=== PATIENT | female | born 1965 | race African-American/Black ===

== ENCOUNTER 2018-02-23 00:58 | Emergency (ER) | payer OTHER ==
[~2018-02-23] VITALS: Ht 170.2 cm; Wt 82.2 kg
[~2018-02-23 00:58] MED LIST: HALDOL; LITHIUM
[2018-02-23] MEDS ORDERED: HALO5 PO (01:07)
[2018-02-23] MEDS ORDERED: BENZ2TAB10 PO (01:07)
[2018-02-23] MEDS ORDERED: BENZTROPINE MESYLATE 1 MG/ML 2 ML VIAL IM ONE (01:45)
[2018-02-23 04:00] VITALS: BP 122/71
== END 2018-02-23 04:30 | disposition home or self-care (01) ==
LOC: EMS 00:59
DX: T43.4X1A Poisoning by butyrophenone and thiothixene neuroleptics, accidental (unintentional), initial encounter (principal); Y92.89 Other specified places as the place of occurrence of the external cause
CPT/HCPCS: 96372; 99283; J0515

== ENCOUNTER 2018-05-03 09:25 | Inpatient (IN) | payer MEDICARE, MEDICAID ==
[~2018-05-03] VITALS: Ht 165.1 cm; Wt 81.5 kg
[~2018-05-03 09:25] MED LIST changes: +BENZ2TAB10 PO; -HALDOL; +HALO5TAB2 PO; -LITHIUM
[2018-05-03] MEDS ORDERED: DIPH25 PO (10:27)
[2018-05-03 10:39] LABS: BASOPHILS % (AUTO) 1.4 % (0.0-2.0); HEMATOCRIT 36.4 % (36-46); HEMOGLOBIN 11.4 g/dL (12.0-16.0); LYMPHOCYTES % (AUTO) 45.7 % (22.0-44.0); MEAN CORPUSCULAR HEMOGLOBIN 21.3 pg (26.0-34.0); MEAN CORPUSCULAR HGB CONC 31.5 G/dL (31.0-37.0); MEAN CORPUSCULAR VOLUME 68 fL (80-100); MONOCYTES # (AUTO) 0.6 K/uL (0.1-1.0); MONOCYTES % (AUTO) 13.7 % (2.0-9.0); NEUTROPHILS # (AUTO) 1.6 K/uL (1.8-7.7); NEUTROPHILS % (AUTO) 38.2 % (40.0-70.0); PLATELET COUNT (AUTO) 244 K/uL (150-450); RED BLOOD CELL COUNT(AUTO) 5.38 MIL/uL (4.00-5.20); RED CELL DISTRIBUTION WIDTH 15.2 % (11.5-14.5)
[2018-05-03] MEDS ORDERED: LORazepam 2 MG TABLET PO ONE (11:00)
[2018-05-03 11:02] LABS: ANION GAP 3 mmol/L (8-16); CALCIUM, TOTAL 8.7 mg/dL (8.8-10.5); CARBON DIOXIDE 31 mmol/L (22-29); CHLORIDE 105 mmol/L (98-107); GLOMERULAR FILTR. RATE CALC > 60 mL/min (>60); GLUCOSE,RANDOM 99 mg/dL (70-110); POTASSIUM 3.2 mmol/L (3.5-5.1); SODIUM SERUM 139 mmol/L (136-145); UREA NITROGEN, BLOOD 3 mg/dL (7-18)
[2018-05-03 11:16] LABS: ALANINE AMINOTRANSFERASE 27 U/L (12-78); ALBUMIN 3.6 g/dL (3.4-5.0); ALKALINE PHOSPHATASE 64 U/L (46-116); ASPARTATE AMINOTRANSFERASE 21 U/L (15-37); BILIRUBIN,TOTAL 0.6 mg/dL (0.1-1.0); TOTAL PROTEIN, SERUM 7.2 g/dL (6.4-8.2)
[2018-05-03 11:18] LABS: AMPHET/METH SCREEN,URINE NEGATIVE (NEGATIVE); BARBITURATE SCREEN, URINE NEGATIVE (NEGATIVE); BENZODIAZEPINES SCREEN,URINE NEGATIVE (NEGATIVE); CANNABINOID SCREEN,URINE NEGATIVE (NEGATIVE); COCAINE SCREEN,URINE NEGATIVE (NEGATIVE); METHADONE SCREEN, URINE NEGATIVE (NEGATIVE); OPIATE SCREEN,URINE NEGATIVE (NEGATIVE)
[2018-05-03 11:21] LABS: PHENCYCLIDINE SCREEN,URINE NEGATIVE (NEGATIVE)
[2018-05-03] MEDS ORDERED: HALOPERIDOL 5 MG TABLET PO PRN (11:30)
[2018-05-03] MEDS ORDERED: POTASSIUM CHLORIDE 20 MEQ ER TABLET PO ONE (11:30)
[2018-05-03] MEDS ORDERED: ZOLPIDEM TARTRATE 10 MG TABLET PO PRN (11:30)
[2018-05-03 12:31] LABS: CHOL/HDL RATIO 2.1 (3.9-5.7); CHOLESTEROL 143 mg/dL (131-200); HDL CHOLESTEROL 67 mg/dL (40-60); LDL CHOL (CALC.) 66 mg/dL (0-130); TRIGLYCERIDES 52 mg/dL (15-150)
[2018-05-03 13:12] VITALS: BP 134/66
[2018-05-03 17:21] VITALS: BP 117/70
[2018-05-03] MEDS: BENZTROPINE MESYLATE 2 MG TABLET PO SCH (21:28)
[2018-05-03] MEDS: HALOPERIDOL 5 MG TABLET PO SCH (21:28)
[2018-05-03] MEDS ORDERED: ACETAMINOPHEN 325 MG TABLET PO PRN (23:45)
[2018-05-04 00:45] VITALS: BP 109/80
[2018-05-04 08:00] VITALS: BP 120/75
[2018-05-04 10:06] VITALS: BP 120/75
[2018-05-04 18:34] VITALS: BP 151/96
[2018-05-04] MEDS ORDERED: ACETAMINOPHEN 325 MG TABLET PO PRN (20:45)
[2018-05-04] MEDS ORDERED: IBUPROFEN 400 MG TABLET PO PRN (20:45)
[2018-05-04] MEDS: BENZTROPINE MESYLATE 2 MG TABLET PO SCH (21:18)
[2018-05-04] MEDS: HALOPERIDOL 5 MG TABLET PO SCH (21:19)
[2018-05-05 00:30] VITALS: BP 133/94
[2018-05-05] MEDS: LORazepam 2 MG TABLET PO PRN ×2 (01:03→20:06)
[2018-05-05 07:58] LABS: HEMOGLOBIN A1C 6.3 % (4.5-6.2)
[2018-05-05 08:05] LABS: THYROID STIMULATING HORMONE 0.76 uIU/mL (0.36-3.74)
[2018-05-05 08:35] VITALS: BP 114/78
[2018-05-05 18:07] VITALS: BP 136/89
[2018-05-05] MEDS: HALOPERIDOL 5 MG TABLET PO SCH (20:05)
[2018-05-05] MEDS: BENZTROPINE MESYLATE 2 MG TABLET PO SCH (20:06)
[2018-05-06 06:52] VITALS: BP 125/64
[2018-05-06 08:45] VITALS: BP 115/52
[2018-05-06 16:43] VITALS: BP 123/76
[2018-05-06] MEDS: HALOPERIDOL 5 MG TABLET PO SCH (20:27)
[2018-05-06] MEDS: BENZTROPINE MESYLATE 2 MG TABLET PO SCH (20:27)
[2018-05-07 00:10] VITALS: BP 147/75
[2018-05-07 09:22] VITALS: BP 110/68
== END 2018-05-07 14:30 | disposition home or self-care (01) | DRG 885 ==
LOC: EMS 09:52 → 3EX 12:40
PROVIDERS: ADMIT Psychiatry & Neurology Child & Adolescent Psychiatry; ATTEND Psychiatry & Neurology Child & Adolescent Psychiatry
DX: F25.0 Schizoaffective disorder, bipolar type (principal); E87.6 Hypokalemia; D64.9 Anemia, unspecified; D72.819 Decreased white blood cell count, unspecified; R73.03 Prediabetes; F41.9 Anxiety disorder, unspecified; F32.9 Major depressive disorder, single episode, unspecified; Z79.899 Other long term (current) drug therapy
CPT/HCPCS: 70450; 83036; 84443; 99285; G0480

== ENCOUNTER 2018-06-26 08:59 | Emergency (ER) | payer OTHER ==
[~2018-06-26] VITALS: Ht 170.2 cm; Wt 80.9 kg
[2018-06-26 09:19] VITALS: BP_DIAS 68
[2018-06-26 09:44] LABS: BASOPHILS % (AUTO) 1.6 % (0.0-2.0); EOSINOPHILS % (AUTO) 0.8 % (1.0-6.0); HEMATOCRIT 34.4 % (36-46); HEMOGLOBIN 11.1 g/dL (12.0-16.0); LYMPHOCYTES # (AUTO) 1.4 K/uL (1.0-4.8); LYMPHOCYTES % (AUTO) 32.7 % (22.0-44.0); MEAN CORPUSCULAR HEMOGLOBIN 21.8 pg (26.0-34.0); MEAN CORPUSCULAR HGB CONC 32.3 G/dL (31.0-37.0); MEAN CORPUSCULAR VOLUME 68 fL (80-100); MONOCYTES # (AUTO) 0.4 K/uL (0.1-1.0); MONOCYTES % (AUTO) 10.6 % (2.0-9.0); NEUTROPHILS # (AUTO) 2.3 K/uL (1.8-7.7); NEUTROPHILS % (AUTO) 54.3 % (40.0-70.0); PLATELET COUNT (AUTO) 242 K/uL (150-450); RED CELL DISTRIBUTION WIDTH 15.6 % (11.5-14.5)
[2018-06-26 09:56] LABS: ANION GAP 9 mmol/L (8-16); CALCIUM, TOTAL 8.7 mg/dL (8.8-10.5); CARBON DIOXIDE 27 mmol/L (22-29); CHLORIDE 104 mmol/L (98-107); CREATININE 0.92 mg/dL (0.60-1.30); GLOMERULAR FILTR. RATE CALC > 60 mL/min (>60); GLUCOSE,RANDOM 116 mg/dL (70-110); POTASSIUM 3.1 mmol/L (3.5-5.1); SODIUM SERUM 140 mmol/L (136-145); UREA NITROGEN, BLOOD 5 mg/dL (7-18)
[2018-06-26 10:01] LABS: ALANINE AMINOTRANSFERASE 21 U/L (12-78); ALBUMIN 3.7 g/dL (3.4-5.0); ALKALINE PHOSPHATASE 63 U/L (46-116); ASPARTATE AMINOTRANSFERASE 17 U/L (15-37); BILIRUBIN,TOTAL 0.4 mg/dL (0.1-1.0); TOTAL PROTEIN, SERUM 7.1 g/dL (6.4-8.2)
[2018-06-26 10:19] LABS: AMPHET/METH SCREEN,URINE NEGATIVE (NEGATIVE); BARBITURATE SCREEN, URINE NEGATIVE (NEGATIVE); BENZODIAZEPINES SCREEN,URINE NEGATIVE (NEGATIVE); CANNABINOID SCREEN,URINE NEGATIVE (NEGATIVE); COCAINE SCREEN,URINE NEGATIVE (NEGATIVE); METHADONE SCREEN, URINE NEGATIVE (NEGATIVE); OPIATE SCREEN,URINE POSITIVE (NEGATIVE)
[2018-06-26 10:22] VITALS: BP_SYST 139
[2018-06-26 10:22] LABS: APPEARANCE,URINE CLOUDY (CLEAR); BILIRUBIN,URINE NEGATIVE (NEGATIVE); GLUCOSE, URINE (UA) NEGATIVE (NEGATIVE); KETONES,URINE NEGATIVE (NEGATIVE); LEUKOCYTE ESTERASE ,URINE NEGATIVE (NEGATIVE); NITRATE,URINE NEGATIVE (NEGATIVE); OCCULT BLOOD,URINE NEGATIVE (NEGATIVE); PH,URINE 6.5 (5.0-8.0); PROTEIN,URINE POS 1+ (NEGATIVE)
[2018-06-26 10:25] LABS: PHENCYCLIDINE SCREEN,URINE NEGATIVE (NEGATIVE)
[2018-06-26 10:48] LABS: BACTERIA,URINE None Seen /HPF (None Seen); RBC,URINE None Seen /HPF (0-2); SQUAMOUS EPITHELIAL CELL,UR Few /LPF (None Seen); WBC,URINE 0-2 /HPF (0-5)
[2018-06-26] MEDS ORDERED: POTASSIUM CHLORIDE 20 MEQ ER TABLET PO ONE (11:15)
== END 2018-06-26 11:49 | disposition home or self-care (01) ==
LOC: EMS 09:03
DX: F20.9 Schizophrenia, unspecified (principal); F31.9 Bipolar disorder, unspecified
CPT/HCPCS: 36415; 80053; 80307; 81001; 85025; 99284; G0480

== ENCOUNTER 2019-02-17 14:36 | Emergency (ER) | payer OTHER ==
[~2019-02-17] VITALS: Ht 170.2 cm; Wt 102.3 kg
[2019-02-17] MEDS ORDERED: HALOPERIDOL LACTATE 5 MG/ML VIAL IM ONE (15:45)
[2019-02-17] MEDS ORDERED: LORazepam 2 MG/ML VIAL IM ONE (15:45)
[2019-02-17 16:20] VITALS: BP 144/84
== END 2019-02-17 16:21 | disposition home or self-care (01) ==
LOC: EMS 14:37
DX: F41.9 Anxiety disorder, unspecified (principal); F43.9 Reaction to severe stress, unspecified; F31.9 Bipolar disorder, unspecified; F20.9 Schizophrenia, unspecified; Z76.0 Encounter for issue of repeat prescription
CPT/HCPCS: 96372; 99284; J1630; J2060

== ENCOUNTER 2019-02-20 09:21 | Emergency (ER) | payer OTHER ==
[~2019-02-20] VITALS: Ht 167.6 cm; Wt 77.3 kg
[2019-02-20] MEDS ORDERED: LORazepam 2 MG TABLET PO ONE (10:15)
[2019-02-20 10:51] LABS: BASOPHILS % (AUTO) 0.6 % (0.0-2.0); EOSINOPHILS % (AUTO) 0 % (1.0-6.0); HEMATOCRIT 36.3 % (36-46); HEMOGLOBIN 11.2 g/dL (12.0-16.0); LYMPHOCYTES # (AUTO) 1.5 K/uL (1.0-4.8); LYMPHOCYTES % (AUTO) 19.4 % (22.0-44.0); MEAN CORPUSCULAR HEMOGLOBIN 20.8 pg (26.0-34.0); MEAN CORPUSCULAR HGB CONC 30.7 G/dL (31.0-37.0); MEAN CORPUSCULAR VOLUME 68 fL (80-100); MONOCYTES # (AUTO) 0.9 K/uL (0.1-1.0); NEUTROPHILS # (AUTO) 5.3 K/uL (1.8-7.7); PLATELET COUNT (AUTO) 317 K/uL (150-450); RED BLOOD CELL COUNT(AUTO) 5.37 MIL/uL (4.00-5.20); RED CELL DISTRIBUTION WIDTH 14.8 % (11.5-14.5)
[2019-02-20 11:06] LABS: ALANINE AMINOTRANSFERASE 19 U/L (12-78); ALBUMIN 3.5 g/dL (3.4-5.0); ALKALINE PHOSPHATASE 74 U/L (46-116); ANION GAP 13 mmol/L (8-16); ASPARTATE AMINOTRANSFERASE 19 U/L (15-37); BILIRUBIN,TOTAL 0.3 mg/dL (0.1-1.0); CALCIUM, TOTAL 9.2 mg/dL (8.8-10.5); CARBON DIOXIDE 26 mmol/L (22-29); CHLORIDE 101 mmol/L (98-107); CREATININE 0.95 mg/dL (0.60-1.30); GLOMERULAR FILTR. RATE CALC > 60 mL/min (>60); GLUCOSE,RANDOM 114 mg/dL (70-110); SODIUM SERUM 140 mmol/L (136-145); TOTAL PROTEIN, SERUM 7.1 g/dL (6.4-8.2); UREA NITROGEN, BLOOD 1 mg/dL (7-18)
[2019-02-20 11:06] LABS: AMPHET/METH SCREEN,URINE NEGATIVE (NEGATIVE); BARBITURATE SCREEN, URINE NEGATIVE (NEGATIVE); BENZODIAZEPINES SCREEN,URINE NEGATIVE (NEGATIVE); CANNABINOID SCREEN,URINE NEGATIVE (NEGATIVE); COCAINE SCREEN,URINE NEGATIVE (NEGATIVE); METHADONE SCREEN, URINE NEGATIVE (NEGATIVE); OPIATE SCREEN,URINE NEGATIVE (NEGATIVE)
[2019-02-20 11:11] LABS: PHENCYCLIDINE SCREEN,URINE NEGATIVE (NEGATIVE)
[2019-02-20 11:13] LABS: POTASSIUM 2.9 mmol/L (3.5-5.1)
[2019-02-20 11:25] LABS: PLATELET MORPHOLOGY COMMENT LARGE PLTS PRESENT
[2019-02-20] MEDS ORDERED: POTASSIUM CHLORIDE 20 MEQ ER TABLET PO ONE (11:45)
[2019-02-20 13:33] VITALS: BP 150/83
== END 2019-02-20 14:18 | disposition home or self-care (01) ==
LOC: EMS 09:23
DX: F41.9 Anxiety disorder, unspecified (principal); E87.6 Hypokalemia; G47.00 Insomnia, unspecified; F31.9 Bipolar disorder, unspecified; F20.9 Schizophrenia, unspecified
CPT/HCPCS: 36415; 80053; 80307; 85025; 99284; G0480

== ENCOUNTER 2019-07-29 09:13 | Emergency (ER) | payer OTHER ==
[~2019-07-29] VITALS: Ht 167.6 cm; Wt 77.3 kg
[2019-07-29 10:59] LABS: APPEARANCE,URINE CLOUDY (CLEAR); BILIRUBIN,URINE NEGATIVE (NEGATIVE); GLUCOSE, URINE (UA) NEGATIVE (NEGATIVE); KETONES,URINE TRACE mg/dL (NEGATIVE); LEUKOCYTE ESTERASE ,URINE TRACE (NEGATIVE); NITRATE,URINE NEGATIVE (NEGATIVE); OCCULT BLOOD,URINE LARGE (NEGATIVE); PROTEIN,URINE POS 1+ (NEGATIVE)
[2019-07-29 11:11] LABS: BACTERIA,URINE None Seen /HPF (None Seen); MUCUS,URINE Many LPF (None Seen); SQUAMOUS EPITHELIAL CELL,UR Few /LPF (None Seen); WBC,URINE 0-2 /HPF (0-5)
[2019-07-29 12:15] VITALS: BP 116/77
== END 2019-07-29 12:18 | disposition home or self-care (01) ==
LOC: EMS 09:19
DX: N93.9 Abnormal uterine and vaginal bleeding, unspecified (principal); F31.9 Bipolar disorder, unspecified; F20.9 Schizophrenia, unspecified; F17.210 Nicotine dependence, cigarettes, uncomplicated; Z79.899 Other long term (current) drug therapy
CPT/HCPCS: 99406

== ENCOUNTER 2020-04-27 20:07 | Emergency (ER) | payer OTHER ==
[~2020-04-27] VITALS: Ht 157.5 cm; Wt 61.4 kg
[2020-04-27 20:20] VITALS: BP 135/59
[2020-04-27] MEDS ORDERED: ZOLP10TA8 PO (20:20)
[2020-04-27] MEDS ORDERED: HALOPERIDOL 5 MG TABLET PO ONE (21:00)
== END 2020-04-27 21:23 | disposition home or self-care (01) ==
LOC: EMS 20:08
DX: F20.9 Schizophrenia, unspecified (principal); F31.9 Bipolar disorder, unspecified

== ENCOUNTER 2021-02-28 09:30 | Emergency (ER) | payer OTHER ==
[~2021-02-28] VITALS: Ht 170.2 cm; Wt 77.3 kg
[~2021-02-28 09:30] MED LIST changes: +ZOLP10TA8 PO
[2021-02-28] MEDS ORDERED: LORazepam 1 MG TABLET PO ONE (09:45)
[2021-02-28 10:04] LABS: AMPHET/METH SCREEN,URINE NEGATIVE (NEGATIVE); BARBITURATE SCREEN, URINE NEGATIVE (NEGATIVE); BENZODIAZEPINES SCREEN,URINE NEGATIVE (NEGATIVE); CANNABINOID SCREEN,URINE NEGATIVE (NEGATIVE); COCAINE SCREEN,URINE NEGATIVE (NEGATIVE); METHADONE SCREEN, URINE NEGATIVE (NEGATIVE); OPIATE SCREEN,URINE NEGATIVE (NEGATIVE); PHENCYCLIDINE SCREEN,URINE NEGATIVE (NEGATIVE)
[2021-02-28 10:13] LABS: POTASSIUM 3.8 mmol/L (3.5-5.1); SODIUM SERUM 140 mmol/L (136-145)
[2021-02-28 10:14] LABS: ANION GAP 10 mmol/L (8-16); CALCIUM, TOTAL 9.2 mg/dL (8.8-10.5); CARBON DIOXIDE 25 mmol/L (22-29); CHLORIDE 105 mmol/L (98-107); CREATININE 1.09 mg/dL (0.60-1.30); GLOMERULAR FILTR. RATE CALC > 60 mL/min (>60); GLUCOSE,RANDOM 124 mg/dL (70-110); UREA NITROGEN, BLOOD 3 mg/dL (7-18)
[2021-02-28 10:19] LABS: ALANINE AMINOTRANSFERASE 21 U/L (12-78); ALBUMIN 3.8 g/dL (3.4-5.0); ALKALINE PHOSPHATASE 77 U/L (46-116); ASPARTATE AMINOTRANSFERASE 15 U/L (15-37); BILIRUBIN,TOTAL 0.4 mg/dL (0.1-1.0); TOTAL PROTEIN, SERUM 7.6 g/dL (6.4-8.2)
[2021-02-28 10:20] LABS: BASOPHILS % (AUTO) 0.6 % (0.0-2.0); EOSINOPHILS % (AUTO) 0.4 % (1.0-6.0); HEMATOCRIT 39.6 % (36-46); HEMOGLOBIN 12.4 g/dL (12.0-16.0); LYMPHOCYTES # (AUTO) 2.5 K/uL (1.0-4.8); LYMPHOCYTES % (AUTO) 42.9 % (22.0-44.0); MEAN CORPUSCULAR HEMOGLOBIN 21.3 pg (26.0-34.0); MEAN CORPUSCULAR HGB CONC 31.3 G/dL (31.0-37.0); MEAN CORPUSCULAR VOLUME 68 fL (80-100); MONOCYTES # (AUTO) 0.6 K/uL (0.1-1.0); MONOCYTES % (AUTO) 10.2 % (2.0-9.0); NEUTROPHILS # (AUTO) 2.7 K/uL (1.8-7.7); NEUTROPHILS % (AUTO) 45.9 % (40.0-70.0); PLATELET COUNT (AUTO) 256 K/uL (150-450); RED BLOOD CELL COUNT(AUTO) 5.81 MIL/uL (4.00-5.20); RED CELL DISTRIBUTION WIDTH 15.3 % (11.5-14.5)
[2021-02-28 11:33] VITALS: BP 111/60
== END 2021-02-28 11:39 | disposition home or self-care (01) ==
LOC: EMS 09:37
DX: F20.9 Schizophrenia, unspecified (principal)
CPT/HCPCS: 36415; 80053; 80307; 85025; 99284; G0480

== ENCOUNTER 2021-03-17 11:08 | Inpatient (IN) | payer MEDICARE, MEDICAID ==
[~2021-03-17] VITALS: Ht 165.1 cm; Wt 87.0 kg
[2021-03-17] MEDS ORDERED: LORazepam 2 MG/ML VIAL ONE (12:22)
[2021-03-17] MEDS ORDERED: LORazepam 2 MG/ML VIAL IM ONE (12:30)
[2021-03-17 12:56] LABS: BASOPHILS % (AUTO) 1.2 % (0.0-2.0); EOSINOPHILS % (AUTO) 0.2 % (1.0-6.0); HEMATOCRIT 39.8 % (36-46); HEMOGLOBIN 12.4 g/dL (12.0-16.0); LYMPHOCYTES # (AUTO) 1.9 K/uL (1.0-4.8); LYMPHOCYTES % (AUTO) 32.1 % (22.0-44.0); MEAN CORPUSCULAR HEMOGLOBIN 21.5 pg (26.0-34.0); MEAN CORPUSCULAR HGB CONC 31.2 G/dL (31.0-37.0); MEAN CORPUSCULAR VOLUME 69 fL (80-100); MONOCYTES # (AUTO) 0.7 K/uL (0.1-1.0); MONOCYTES % (AUTO) 11.6 % (2.0-9.0); NEUTROPHILS # (AUTO) 3.3 K/uL (1.8-7.7); NEUTROPHILS % (AUTO) 54.9 % (40.0-70.0); PLATELET COUNT (AUTO) 277 K/uL (150-450); RED BLOOD CELL COUNT(AUTO) 5.78 MIL/uL (4.00-5.20); RED CELL DISTRIBUTION WIDTH 15.5 % (11.5-14.5)
[2021-03-17 13:05] LABS: ANION GAP 10 mmol/L (8-16); CARBON DIOXIDE 25 mmol/L (22-29); CHLORIDE 101 mmol/L (98-107); CREATININE 1.11 mg/dL (0.60-1.30); GLOMERULAR FILTR. RATE CALC > 60 mL/min (>60); GLUCOSE,RANDOM 145 mg/dL (70-110); POTASSIUM 3.4 mmol/L (3.5-5.1); SODIUM SERUM 136 mmol/L (136-145); UREA NITROGEN, BLOOD 8 mg/dL (7-18)
[2021-03-17 13:09] LABS: ALANINE AMINOTRANSFERASE 20 U/L (12-78); ALKALINE PHOSPHATASE 70 U/L (46-116); ASPARTATE AMINOTRANSFERASE 15 U/L (15-37); BILIRUBIN,TOTAL 0.2 mg/dL (0.1-1.0); TOTAL PROTEIN, SERUM 7.5 g/dL (6.4-8.2)
[2021-03-17] MEDS ORDERED: BENZTROPINE MESYLATE 2 MG TABLET PO ONE (13:30)
[2021-03-17] MEDS ORDERED: HALOPERIDOL 5 MG TABLET PO ONE (13:30)
[2021-03-17 13:52] LABS: COVID AG,FIA SOURCE NASOPHARYNGEAL
[2021-03-17] MEDS ORDERED: LORazepam 2 MG TABLET PO PRN (14:30)
[2021-03-17] MEDS ORDERED: ZOLPIDEM TARTRATE 10 MG TABLET PO PRN (14:30)
[2021-03-17] MEDS ORDERED: HALOPERIDOL 5 MG TABLET PO PRN (14:30)
[2021-03-17 18:10] LABS: AMPHET/METH SCREEN,URINE NEGATIVE (NEGATIVE); BARBITURATE SCREEN, URINE NEGATIVE (NEGATIVE); BENZODIAZEPINES SCREEN,URINE NEGATIVE (NEGATIVE); CANNABINOID SCREEN,URINE NEGATIVE (NEGATIVE); COCAINE SCREEN,URINE NEGATIVE (NEGATIVE); METHADONE SCREEN, URINE NEGATIVE (NEGATIVE); OPIATE SCREEN,URINE NEGATIVE (NEGATIVE)
[2021-03-17 18:17] LABS: PHENCYCLIDINE SCREEN,URINE NEGATIVE (NEGATIVE)
[2021-03-17 19:51] VITALS: BP 122/78
[2021-03-17] MEDS: BENZTROPINE MESYLATE 2 MG TABLET PO SCH (21:39)
[2021-03-17] MEDS: HALOPERIDOL 5 MG TABLET PO SCH (21:40)
[2021-03-18 00:44] VITALS: BP 130/72
[2021-03-18] MEDS ORDERED: MAG HYDROX/AL HYDROX/SIMETH ES 30 ML SUSPENSION UDCUP PO PRN (06:30)
[2021-03-18] MEDS ORDERED: OMEPRAZOLE 20 MG CAPSULE PO PRN (06:30)
[2021-03-18] MEDS ORDERED: LOPERAMIDE HCL 2 MG CAPSULE PO PRN (06:30)
[2021-03-18] MEDS ORDERED: BENZOCAINE/MENTHOL LOZENGE PO PRN (06:30)
[2021-03-18] MEDS ORDERED: CloNIDine HCL 0.1 MG TABLET PO PRN (06:30)
[2021-03-18] MEDS ORDERED: ALBUTEROL SULFATE HFA 90 MCG/PUFF 8 GM INHALER IH PRN (06:30)
[2021-03-18] MEDS ORDERED: BACITRACIN 28 GM OINTMENT TP PRN (06:30)
[2021-03-18] MEDS ORDERED: DOCUSATE SODIUM 100 MG CAPSULE PO PRN (06:30)
[2021-03-18] MEDS ORDERED: ACETAMINOPHEN 325 MG TABLET PO PRN (06:30)
[2021-03-18] MEDS ORDERED: ONDANSETRON HCL 4 MG TABLET PO PRN (06:30)
[2021-03-18] MEDS ORDERED: IBUPROFEN 600 MG TABLET PO PRN (06:30)
[2021-03-18] MEDS ORDERED: PETROLATUM,WHITE 28 GM JELLY TP PRN (06:30)
[2021-03-18] MEDS ORDERED: POTASSIUM CHLORIDE 20 MEQ ER TABLET PO ONE (06:30)
[2021-03-18] MEDS ORDERED: MAGNESIUM HYDROXIDE SUSPENSION 30 ML UDCUP PO PRN (06:30)
[2021-03-18 08:36] VITALS: BP 106/70
[2021-03-18] MEDS: FERROUS SULFATE 325 MG EC TABLET PO SCH (08:41)
[2021-03-18 16:05] VITALS: BP 105/67
[2021-03-18] MEDS: HALOPERIDOL 5 MG TABLET PO SCH (20:16)
[2021-03-18] MEDS: BENZTROPINE MESYLATE 2 MG TABLET PO SCH (20:16)
[2021-03-19 00:38] VITALS: BP 113/64
[2021-03-19 08:17] VITALS: BP 116/73
[2021-03-19] MEDS: FERROUS SULFATE 325 MG EC TABLET PO SCH (08:21)
[2021-03-19 16:07] VITALS: BP 106/70
[2021-03-19] MEDS: HALOPERIDOL 5 MG TABLET PO SCH (20:28)
[2021-03-19] MEDS: BENZTROPINE MESYLATE 2 MG TABLET PO SCH (20:28)
[2021-03-20 05:37] VITALS: BP 135/70
[2021-03-20] MEDS: FERROUS SULFATE 325 MG EC TABLET PO SCH (08:27)
[2021-03-20 08:54] VITALS: BP 123/81
[2021-03-20 16:32] VITALS: BP 142/68
[2021-03-20] MEDS: HALOPERIDOL 5 MG TABLET PO SCH (20:04)
[2021-03-20] MEDS: BENZTROPINE MESYLATE 2 MG TABLET PO SCH (20:04)
[2021-03-21 05:47] VITALS: BP 116/63
[2021-03-21] MEDS: FERROUS SULFATE 325 MG EC TABLET PO SCH (08:38)
[2021-03-21 08:42] VITALS: BP 129/68
[2021-03-21 16:10] VITALS: BP 113/61
[2021-03-21] MEDS: HALOPERIDOL 5 MG TABLET PO SCH (20:07)
[2021-03-21] MEDS: BENZTROPINE MESYLATE 2 MG TABLET PO SCH (20:07)
[2021-03-22 00:12] VITALS: BP 104/81
[2021-03-22 07:20] LABS: COVID AG,FIA SOURCE NASOPHARYNGEAL
[2021-03-22] MEDS: FERROUS SULFATE 325 MG EC TABLET PO SCH (08:27)
[2021-03-22 08:52] VITALS: BP 119/64
[2021-03-22 16:09] VITALS: BP 104/68
[2021-03-22] MEDS: BENZTROPINE MESYLATE 2 MG TABLET PO SCH (21:45)
[2021-03-22] MEDS: HALOPERIDOL 5 MG TABLET PO SCH (21:45)
[2021-03-23 00:12] VITALS: BP 121/73
[2021-03-23 07:34] LABS: BASOPHILS % (AUTO) 0.4 % (0.0-2.0); EOSINOPHILS % (AUTO) 0.9 % (1.0-6.0); HEMATOCRIT 35.1 % (36-46); HEMOGLOBIN 10.8 g/dL (12.0-16.0); LYMPHOCYTES # (AUTO) 2.4 K/uL (1.0-4.8); LYMPHOCYTES % (AUTO) 42.7 % (22.0-44.0); MEAN CORPUSCULAR HGB CONC 30.8 G/dL (31.0-37.0); MEAN CORPUSCULAR VOLUME 68 fL (80-100); MONOCYTES # (AUTO) 0.7 K/uL (0.1-1.0); MONOCYTES % (AUTO) 11.8 % (2.0-9.0); NEUTROPHILS # (AUTO) 2.5 K/uL (1.8-7.7); NEUTROPHILS % (AUTO) 44.2 % (40.0-70.0); PLATELET COUNT (AUTO) 209 K/uL (150-450); RED BLOOD CELL COUNT(AUTO) 5.15 MIL/uL (4.00-5.20); RED CELL DISTRIBUTION WIDTH 15.7 % (11.5-14.5)
[2021-03-23 08:04] LABS: HEMOGLOBIN A1C 5.8 % (3.8-5.6)
[2021-03-23] MEDS: FERROUS SULFATE 325 MG EC TABLET PO SCH (08:05)
[2021-03-23 08:09] VITALS: BP 119/65
[2021-03-23 08:14] LABS: % IRON SATURATION 14.4 % (22-44); IRON, SERUM 34 mcg/dL (50-175); TOTAL IRON BINDING CAPACITY 236 mcg/dL (250-450)
[2021-03-23 08:16] LABS: ALANINE AMINOTRANSFERASE 19 U/L (12-78); ALKALINE PHOSPHATASE 55 U/L (46-116); ANION GAP 7 mmol/L (8-16); ASPARTATE AMINOTRANSFERASE 11 U/L (15-37); BILIRUBIN,TOTAL 0.1 mg/dL (0.1-1.0); CALCIUM, TOTAL 8.6 mg/dL (8.8-10.5); CARBON DIOXIDE 26 mmol/L (22-29); CHLORIDE 104 mmol/L (98-107); CHOL/HDL RATIO 3.2 (3.9-5.7); CHOLESTEROL 158 mg/dL (131-200); CREATININE 0.85 mg/dL (0.60-1.30); GLOMERULAR FILTR. RATE CALC > 60 mL/min (>60); GLUCOSE,RANDOM 94 mg/dL (70-110); HDL CHOLESTEROL 50 mg/dL (40-60); LDL CHOL (CALC.) 94 mg/dL (0-130); PHOSPHORUS 3.9 mg/dL (2.5-4.9); POTASSIUM 4.3 mmol/L (3.5-5.1); SODIUM SERUM 137 mmol/L (136-145); THYROID STIMULATING HORMONE 0.65 uIU/mL (0.36-3.74); TOTAL PROTEIN, SERUM 5.9 g/dL (6.4-8.2); TRIGLYCERIDES 72 mg/dL (15-150); UREA NITROGEN, BLOOD 10 mg/dL (7-18)
[2021-03-23 16:02] VITALS: BP 114/76
[2021-03-23] MEDS: HALOPERIDOL 5 MG TABLET PO SCH (20:08)
[2021-03-23] MEDS: BENZTROPINE MESYLATE 2 MG TABLET PO SCH (20:08)
[2021-03-24 06:31] VITALS: BP_SYST 119; BP_SYST 139; BP_DIAS 102; BP_DIAS 76
[2021-03-24 08:06] VITALS: BP 112/67
[2021-03-24] MEDS: FERROUS SULFATE 325 MG EC TABLET PO SCH (08:08)
[2021-03-24] MEDS ORDERED: HALO5TAB23 PO (08:46)
[2021-03-24] MEDS ORDERED: BENZ2TAB10 PO (08:46)
[2021-03-24] MEDS ORDERED: FERR-89 PO (09:41)
[2021-03-24 16:12] VITALS: BP 114/62
[2021-03-24] MEDS: BENZTROPINE MESYLATE 2 MG TABLET PO SCH (19:57)
[2021-03-24] MEDS: HALOPERIDOL 5 MG TABLET PO SCH (19:59)
[2021-03-25 00:14] VITALS: BP 116/71
[2021-03-25] MEDS: FERROUS SULFATE 325 MG EC TABLET PO SCH (08:00)
[2021-03-25 08:01] VITALS: BP 136/66
[2021-03-25 16:08] VITALS: BP 114/83
[2021-03-25] MEDS: BENZTROPINE MESYLATE 2 MG TABLET PO SCH (20:09)
[2021-03-25] MEDS: HALOPERIDOL 5 MG TABLET PO SCH (20:09)
[2021-03-26 00:36] VITALS: BP 123/62
[2021-03-26 08:02] VITALS: BP 122/91
[2021-03-26] MEDS: FERROUS SULFATE 325 MG EC TABLET PO SCH (09:03)
[2021-03-26 16:20] VITALS: BP 109/74
[2021-03-26] MEDS: HALOPERIDOL 5 MG TABLET PO SCH (20:13)
[2021-03-26] MEDS: BENZTROPINE MESYLATE 2 MG TABLET PO SCH (20:13)
[2021-03-27 01:05] VITALS: BP 118/72
[2021-03-27] MEDS: FERROUS SULFATE 325 MG EC TABLET PO SCH (08:14)
[2021-03-27 08:19] VITALS: BP 111/78
[2021-03-27 16:02] VITALS: BP 123/72
[2021-03-27] MEDS: BENZTROPINE MESYLATE 2 MG TABLET PO SCH (20:12)
[2021-03-27] MEDS: HALOPERIDOL 5 MG TABLET PO SCH (20:12)
[2021-03-28 00:44] VITALS: BP 145/80
[2021-03-28 07:56] LABS: COVID AG,FIA SOURCE NASOPHARYNGEAL
[2021-03-28] MEDS: FERROUS SULFATE 325 MG EC TABLET PO SCH (08:02)
[2021-03-28 08:11] VITALS: BP 125/69
== END 2021-03-28 14:08 | disposition home or self-care (01) | DRG 885 ==
LOC: EMS 11:13 → B2S 16:45
PROVIDERS: ADMIT Psychiatry & Neurology Psychiatry; ATTEND Psychiatry & Neurology Psychiatry
DX: F25.9 Schizoaffective disorder, unspecified (principal); I10 Essential (primary) hypertension; K21.9 Gastro-esophageal reflux disease without esophagitis; K59.00 Constipation, unspecified; D64.9 Anemia, unspecified; F41.9 Anxiety disorder, unspecified; G47.00 Insomnia, unspecified; F31.9 Bipolar disorder, unspecified; Z20.822 Contact with and (suspected) exposure to COVID-19
CPT/HCPCS: 80053; 80061; 83036; 83540; 83550; 83735; 84100; 84132; 84443; 85025; 87426; 99285; G0480; J2060

== ENCOUNTER 2022-01-01 08:12 | Inpatient (IN) | payer MEDICARE, MEDICAID ==
[~2022-01-01] VITALS: Ht 170.2 cm; Wt 87.3 kg
[~2022-01-01 08:12] MED LIST changes: +FERR-89 PO; -HALO5TAB2 PO; +HALO5TAB23 PO; -ZOLP10TA8 PO
[2022-01-01] MEDS ORDERED: DiphenhydrAMINE HCL 50 MG/ML VIAL IM ONE (09:30)
[2022-01-01] MEDS ORDERED: HALOPERIDOL LACTATE 5 MG/ML VIAL IM ONE (09:30)
[2022-01-01 09:33] LABS: EOSINOPHILS % (AUTO) 0.7 % (1.0-6.0); HEMOGLOBIN 12.7 g/dL (12.0-16.0); LYMPHOCYTES # (AUTO) 2.1 K/uL (1.0-4.8); LYMPHOCYTES % (AUTO) 43.1 % (22.0-44.0); MEAN CORPUSCULAR HEMOGLOBIN 21.5 pg (26.0-34.0); MEAN CORPUSCULAR HGB CONC 31.8 G/dL (31.0-37.0); MEAN CORPUSCULAR VOLUME 68 fL (80-100); MONOCYTES # (AUTO) 0.5 K/uL (0.1-1.0); MONOCYTES % (AUTO) 10.3 % (2.0-9.0); NEUTROPHILS # (AUTO) 2.2 K/uL (1.8-7.7); NEUTROPHILS % (AUTO) 44.9 % (40.0-70.0); PLATELET COUNT (AUTO) 265 K/uL (150-450); RED BLOOD CELL COUNT(AUTO) 5.91 MIL/uL (4.00-5.20); RED CELL DISTRIBUTION WIDTH 15.5 % (11.5-14.5)
[2022-01-01 09:43] LABS: ANION GAP 11 mmol/L (8-16); CALCIUM, TOTAL 8.9 mg/dL (8.8-10.5); CARBON DIOXIDE 28 mmol/L (22-29); CHLORIDE 103 mmol/L (98-107); CREATININE 0.92 mg/dL (0.60-1.30); GLOMERULAR FILTR. RATE CALC > 60 mL/min (>60); GLUCOSE,RANDOM 109 mg/dL (70-110); POTASSIUM 3.6 mmol/L (3.5-5.1); SODIUM SERUM 142 mmol/L (136-145); UREA NITROGEN, BLOOD 6 mg/dL (7-18)
[2022-01-01 09:49] LABS: ALANINE AMINOTRANSFERASE 18 U/L (12-78); ALBUMIN 3.7 g/dL (3.4-5.0); ALKALINE PHOSPHATASE 76 U/L (46-116); ASPARTATE AMINOTRANSFERASE 14 U/L (15-37); BILIRUBIN,TOTAL 0.2 mg/dL (0.1-1.0); TOTAL PROTEIN, SERUM 7.4 g/dL (6.4-8.2)
[2022-01-01] MEDS ORDERED: ACETAMINOPHEN 325 MG TABLET PO ONE (12:15)
[2022-01-01 12:46] LABS: COVID AG,FIA SOURCE NASAL SWAB
[2022-01-01 13:54] LABS: AMPHET/METH SCREEN,URINE NEGATIVE (NEGATIVE); BARBITURATE SCREEN, URINE NEGATIVE (NEGATIVE); BENZODIAZEPINES SCREEN,URINE NEGATIVE (NEGATIVE); CANNABINOID SCREEN,URINE NEGATIVE (NEGATIVE); COCAINE SCREEN,URINE NEGATIVE (NEGATIVE); METHADONE SCREEN, URINE NEGATIVE (NEGATIVE); OPIATE SCREEN,URINE NEGATIVE (NEGATIVE)
[2022-01-01 13:55] LABS: PHENCYCLIDINE SCREEN,URINE NEGATIVE (NEGATIVE)
[2022-01-01] MEDS ORDERED: INFLUENZA VIRUS VACCINE QVS 2021-22 (6MO+)/PF 60 MCG/0.5 ML SYRINGE IM. ONE (16:45)
[2022-01-01] MEDS ORDERED: HALOPERIDOL 5 MG TABLET PO PRN (17:45)
[2022-01-01] MEDS ORDERED: ZOLPIDEM TARTRATE 10 MG TABLET PO PRN (17:45)
[2022-01-01] MEDS: LORazepam 2 MG TABLET PO PRN (17:50)
[2022-01-02 09:28] VITALS: BP 131/66
[2022-01-02 16:22] VITALS: BP 124/66
[2022-01-02] MEDS: LORazepam 2 MG TABLET PO PRN (18:50)
[2022-01-03 07:05] VITALS: BP 122/69
[2022-01-03 08:07] VITALS: BP 118/79
[2022-01-03] MEDS ORDERED: PETROLATUM,WHITE 28 GM JELLY TP PRN (13:45)
[2022-01-03] MEDS ORDERED: CloNIDine HCL 0.1 MG TABLET PO PRN (13:45)
[2022-01-03] MEDS ORDERED: LOPERAMIDE HCL 2 MG CAPSULE PO PRN (13:45)
[2022-01-03] MEDS ORDERED: IBUPROFEN 600 MG TABLET PO PRN (13:45)
[2022-01-03] MEDS ORDERED: DOCUSATE SODIUM 100 MG CAPSULE PO PRN (13:45)
[2022-01-03] MEDS ORDERED: ALBUTEROL SULFATE HFA 90 MCG/PUFF 8 GM INHALER IH PRN (13:45)
[2022-01-03] MEDS ORDERED: ACETAMINOPHEN 325 MG TABLET PO PRN (13:45)
[2022-01-03] MEDS ORDERED: ONDANSETRON HCL 4 MG TABLET PO PRN (13:45)
[2022-01-03] MEDS ORDERED: OMEPRAZOLE 20 MG CAPSULE PO PRN (13:45)
[2022-01-03] MEDS ORDERED: BENZOCAINE/MENTHOL LOZENGE PO PRN (13:45)
[2022-01-03] MEDS ORDERED: BACITRACIN 28 GM OINTMENT TP PRN (13:45)
[2022-01-03] MEDS ORDERED: MAG HYDROX/AL HYDROX/SIMETH ES 30 ML SUSPENSION UDCUP PO PRN (13:45)
[2022-01-03] MEDS ORDERED: MAGNESIUM HYDROXIDE SUSPENSION 30 ML UDCUP PO PRN (13:45)
[2022-01-03 16:20] VITALS: BP 115/75
[2022-01-03] MEDS: BENZTROPINE MESYLATE 1 MG TABLET PO SCH (20:47)
[2022-01-03] MEDS: HALOPERIDOL 5 MG TABLET PO SCH (20:47)
[2022-01-04 04:00] VITALS: BP 115/75
[2022-01-04] MEDS: FERROUS SULFATE 325 MG EC TABLET PO SCH (06:30)
[2022-01-04 08:08] VITALS: BP 118/79
[2022-01-04 16:40] VITALS: BP 110/69
[2022-01-04] MEDS: BENZTROPINE MESYLATE 1 MG TABLET PO SCH (20:20)
[2022-01-04] MEDS: HALOPERIDOL 5 MG TABLET PO SCH (20:20)
[2022-01-05] MEDS: FERROUS SULFATE 325 MG EC TABLET PO SCH (06:06)
[2022-01-05 06:12] VITALS: BP 120/72
[2022-01-05 07:07] VITALS: BP 104/82
[2022-01-05 08:29] VITALS: BP 135/77
[2022-01-05] MEDS ORDERED: BENZ1TAB10 PO (10:04)
[2022-01-05] MEDS ORDERED: HALO5TAB2 PO (10:04)
== END 2022-01-05 12:28 | disposition home or self-care (01) | DRG 885 ==
LOC: EMS 08:12 → B3A 15:19
PROVIDERS: ADMIT Psychiatry & Neurology Psychiatry; ATTEND Psychiatry & Neurology Psychiatry
DX: F25.9 Schizoaffective disorder, unspecified (principal); R45.851 Suicidal ideations; D50.9 Iron deficiency anemia, unspecified; I10 Essential (primary) hypertension; K59.00 Constipation, unspecified; F41.9 Anxiety disorder, unspecified; G47.00 Insomnia, unspecified; K21.9 Gastro-esophageal reflux disease without esophagitis; Z20.822 Contact with and (suspected) exposure to COVID-19
CPT/HCPCS: 80053; 85025; 90686; 99285; G0480; J1200; J1630

== ENCOUNTER 2022-01-15 09:24 | Emergency (ER) | payer OTHER ==
[~2022-01-15] VITALS: Ht 170.2 cm; Wt 86.4 kg
[~2022-01-15 09:24] MED LIST changes: +BENZ1TAB10 PO; -BENZ2TAB10 PO; +HALO5TAB2 PO; -HALO5TAB23 PO
[2022-01-15] MEDS ORDERED: LORazepam 1 MG TABLET PO ONE (10:30)
[2022-01-15 11:48] VITALS: BP 127/81
== END 2022-01-15 12:06 | disposition home or self-care (01) ==
LOC: EMS 09:27
DX: F41.9 Anxiety disorder, unspecified (principal); F31.9 Bipolar disorder, unspecified; F20.9 Schizophrenia, unspecified; Z76.0 Encounter for issue of repeat prescription
CPT/HCPCS: 99283

== ENCOUNTER 2022-05-19 20:24 | Emergency (ER) | payer OTHER ==
[~2022-05-19] VITALS: Ht 170.2 cm; Wt 86.4 kg
[~2022-05-19 20:24] MED LIST changes: -BENZ1TAB10 PO; +BENZ1TAB96 PO; -FERR-89 PO; +FERR325T27 PO
[2022-05-19] MEDS ORDERED: LORazepam 1 MG TABLET PO ONE (22:45)
[2022-05-19 23:23] LABS: BASOPHILS % (AUTO) 1.1 % (0.0-2.0); EOSINOPHILS % (AUTO) 0.5 % (1.0-6.0); HEMOGLOBIN 12.6 g/dL (12.0-16.0); LYMPHOCYTES # (AUTO) 2.4 K/uL (1.0-4.8); LYMPHOCYTES % (AUTO) 39.5 % (22.0-44.0); MEAN CORPUSCULAR HEMOGLOBIN 21.2 pg (26.0-34.0); MEAN CORPUSCULAR HGB CONC 31.4 G/dL (31.0-37.0); MEAN CORPUSCULAR VOLUME 68 fL (80-100); MONOCYTES # (AUTO) 0.5 K/uL (0.1-1.0); MONOCYTES % (AUTO) 8.8 % (2.0-9.0); NEUTROPHILS # (AUTO) 3.1 K/uL (1.8-7.7); NEUTROPHILS % (AUTO) 50.1 % (40.0-70.0); PLATELET COUNT (AUTO) 243 K/uL (150-450); RED BLOOD CELL COUNT(AUTO) 5.93 MIL/uL (4.00-5.20); RED CELL DISTRIBUTION WIDTH 14.9 % (11.5-14.5)
[2022-05-19 23:34] LABS: ANION GAP 11 mmol/L (8-16); CALCIUM, TOTAL 9.5 mg/dL (8.8-10.5); CARBON DIOXIDE 24 mmol/L (22-29); CHLORIDE 101 mmol/L (98-107); CREATININE 0.97 mg/dL (0.60-1.30); GLUCOSE,RANDOM 101 mg/dL (70-110); POTASSIUM 3.3 mmol/L (3.5-5.1); SODIUM SERUM 136 mmol/L (136-145); UREA NITROGEN, BLOOD 6 mg/dL (7-18)
[2022-05-19 23:35] LABS: GLOMERULAR FILTR. RATE CALC > 60 mL/min (>60)
[2022-05-19 23:40] LABS: ALANINE AMINOTRANSFERASE 21 U/L (12-78); ALBUMIN 4.2 g/dL (3.4-5.0); ALKALINE PHOSPHATASE 72 U/L (46-116); ASPARTATE AMINOTRANSFERASE 21 U/L (15-37); BILIRUBIN,TOTAL 0.7 mg/dL (0.1-1.0); TOTAL PROTEIN, SERUM 8.1 g/dL (6.4-8.2)
[2022-05-20 02:00] VITALS: BP 135/92
== END 2022-05-20 03:00 | disposition home or self-care (01) ==
LOC: EMS 20:26
DX: F41.9 Anxiety disorder, unspecified (principal); F20.9 Schizophrenia, unspecified; F31.9 Bipolar disorder, unspecified
CPT/HCPCS: 36415; 80053; 85025; 99283; G0480

== ENCOUNTER 2022-07-01 14:15 | Inpatient (IN) | payer MEDICARE, MEDICAID ==
[~2022-07-01] VITALS: Ht 170.2 cm; Wt 83.1 kg
[~2022-07-01 14:15] MED LIST changes: +ACET-2247 PO; +AUD NEB; -BENZ1TAB96 PO; +BENZ2TAB76 PO; -FERR325T27 PO; +HEPA500018 SQ; +PANT-31 PO
[2022-07-01] MEDS ORDERED: ZOLPIDEM TARTRATE 10 MG TABLET PO PRN (15:30)
[2022-07-01 16:01] VITALS: BP 145/97
[2022-07-01] MEDS: LORazepam 2 MG TABLET PO PRN (16:13)
[2022-07-01] MEDS: HALOPERIDOL 5 MG TABLET PO PRN ×2 (16:13→21:17)
[2022-07-02] MEDS ORDERED: MAGNESIUM HYDROXIDE SUSPENSION 30 ML UDCUP PO PRN (06:30)
[2022-07-02] MEDS ORDERED: OMEPRAZOLE 20 MG CAPSULE PO PRN (06:30)
[2022-07-02] MEDS ORDERED: LOPERAMIDE HCL 2 MG CAPSULE PO PRN (06:30)
[2022-07-02] MEDS ORDERED: ONDANSETRON HCL 4 MG TABLET PO PRN (06:30)
[2022-07-02] MEDS ORDERED: ACETAMINOPHEN 325 MG TABLET PO PRN (06:30)
[2022-07-02] MEDS ORDERED: IBUPROFEN 600 MG TABLET PO PRN (06:30)
[2022-07-02] MEDS ORDERED: PETROLATUM,WHITE 28 GM JELLY TP PRN (06:30)
[2022-07-02] MEDS ORDERED: BACITRACIN 28 GM OINTMENT TP PRN (06:30)
[2022-07-02] MEDS ORDERED: BENZOCAINE/MENTHOL LOZENGE PO PRN (06:30)
[2022-07-02] MEDS ORDERED: MAG HYDROX/AL HYDROX/SIMETH ES 30 ML SUSPENSION UDCUP PO PRN (06:30)
[2022-07-02] MEDS ORDERED: CloNIDine HCL 0.1 MG TABLET PO PRN (06:30)
[2022-07-02] MEDS ORDERED: DOCUSATE SODIUM 100 MG CAPSULE PO PRN (06:30)
[2022-07-02] MEDS ORDERED: ALBUTEROL SULFATE HFA 90 MCG/PUFF 8 GM INHALER IH PRN (06:30)
[2022-07-02 07:45] LABS: CHOL/HDL RATIO 3.7 (3.9-5.7); THYROID STIMULATING HORMONE 0.43 uIU/mL (0.36-3.74)
[2022-07-02 08:00] VITALS: BP 107/55
[2022-07-02 16:07] VITALS: BP 115/60
[2022-07-02] MEDS: LORazepam 2 MG TABLET PO PRN (16:11)
[2022-07-02] MEDS: HALOPERIDOL 5 MG TABLET PO PRN (16:12)
[2022-07-02] MEDS: BENZTROPINE MESYLATE 1 MG TABLET PO SCH (20:40)
[2022-07-02] MEDS: HALOPERIDOL 5 MG TABLET PO SCH (20:40)
[2022-07-03 09:07] VITALS: BP 110/63
[2022-07-03 16:12] VITALS: BP 109/71
[2022-07-03] MEDS: HALOPERIDOL 5 MG TABLET PO SCH (20:08)
[2022-07-03] MEDS: BENZTROPINE MESYLATE 1 MG TABLET PO SCH (20:08)
[2022-07-04 08:00] VITALS: BP 126/85
[2022-07-04 16:20] VITALS: BP 132/75
[2022-07-04] MEDS: HALOPERIDOL 5 MG TABLET PO SCH (20:08)
[2022-07-04] MEDS: BENZTROPINE MESYLATE 1 MG TABLET PO SCH (20:08)
[2022-07-05 07:02] LABS: COVID AG,FIA SOURCE NASAL SWAB
[2022-07-05 08:55] VITALS: BP 140/79
[2022-07-05] MEDS ORDERED: HALO5TAB23 PO (12:42)
== END 2022-07-05 15:35 | disposition home or self-care (01) | DRG 885 ==
LOC: 3EI 14:15
PROVIDERS: ADMIT Psychiatry & Neurology Psychiatry; ATTEND Psychiatry & Neurology Psychiatry
DX: F20.9 Schizophrenia, unspecified (principal); Z20.822 Contact with and (suspected) exposure to COVID-19; D50.9 Iron deficiency anemia, unspecified; F41.9 Anxiety disorder, unspecified; G47.00 Insomnia, unspecified; I10 Essential (primary) hypertension; K59.00 Constipation, unspecified; K21.9 Gastro-esophageal reflux disease without esophagitis; Z56.0 Unemployment, unspecified
CPT/HCPCS: 80061; 83036; 84443; 87081

== ENCOUNTER 2023-01-26 16:20 | Emergency (ER) | payer OTHER, MEDICAID ==
[~2023-01-26] VITALS: Ht 160 cm; Wt 72.7 kg
[~2023-01-26 16:20] MED LIST changes: -ACET-2247 PO; -AUD NEB; -BENZ2TAB76 PO; -HALO5TAB2 PO; +HALO5TAB23 PO; -HEPA500018 SQ; -PANT-31 PO
[2023-01-26 16:35] VITALS: BP 134/79
[2023-01-26] MEDS ORDERED: LITH300C3 PO (16:35)
[2023-01-26] MEDS ORDERED: CEPH-558 PO (19:13)
[2023-01-26] MEDS ORDERED: SULF-261 PO (19:13)
[2023-01-26] MEDS ORDERED: BACITRACIN 0.9 GM PACKET OINTMENT TP ONE (19:15)
== END 2023-01-26 19:47 | disposition home or self-care (01) ==
LOC: EMS 16:20
DX: L02.93 Carbuncle, unspecified (principal); F41.9 Anxiety disorder, unspecified; F31.9 Bipolar disorder, unspecified; F20.9 Schizophrenia, unspecified
CPT/HCPCS: 99283

== ENCOUNTER 2023-04-06 14:11 | Emergency (ER) | payer OTHER, MEDICAID ==
[~2023-04-06] VITALS: Ht 167.6 cm; Wt 75.0 kg
[~2023-04-06 14:11] MED LIST changes: +CEPH-558 PO; +LITH300C3 PO; +SULF-261 PO
[2023-04-06] MEDS ORDERED: LORazepam 2 MG/ML VIAL IM ONE (15:45)
[2023-04-06] MEDS ORDERED: HALOPERIDOL LACTATE 5 MG/ML VIAL IM ONE (15:45)
[2023-04-06] MEDS ORDERED: DiphenhydrAMINE HCL 50 MG/ML VIAL IM ONE (15:45)
[2023-04-06 15:50] LABS: BASOPHILS % (AUTO) 1.1 % (0.0-2.0); EOSINOPHILS % (AUTO) 0.6 % (1.0-6.0); HEMATOCRIT 39.2 % (36-46); HEMOGLOBIN 11.8 g/dL (12.0-16.0); LYMPHOCYTES # (AUTO) 1.9 K/uL (1.0-4.8); LYMPHOCYTES % (AUTO) 38.8 % (22.0-44.0); MEAN CORPUSCULAR HEMOGLOBIN 20.7 pg (26.0-34.0); MEAN CORPUSCULAR HGB CONC 30.1 G/dL (31.0-37.0); MEAN CORPUSCULAR VOLUME 69 fL (80-100); MONOCYTES # (AUTO) 0.4 K/uL (0.1-1.0); MONOCYTES % (AUTO) 8.3 % (2.0-9.0); NEUTROPHILS # (AUTO) 2.5 K/uL (1.8-7.7); NEUTROPHILS % (AUTO) 51.2 % (40.0-70.0); PLATELET COUNT (AUTO) 234 K/uL (150-450); RED CELL DISTRIBUTION WIDTH 15.9 % (11.5-14.5)
[2023-04-06 16:09] LABS: ANION GAP 8 mmol/L (8-16); CALCIUM, TOTAL 9.4 mg/dL (8.8-10.5); CARBON DIOXIDE 29 mmol/L (22-29); CHLORIDE 104 mmol/L (98-107); CREATININE 0.89 mg/dL (0.60-1.30); GLOMERULAR FILTR. RATE CALC > 60 mL/min (>60); GLUCOSE,RANDOM 92 mg/dL (70-110); POTASSIUM 3.7 mmol/L (3.5-5.1); SODIUM SERUM 141 mmol/L (136-145)
[2023-04-06 16:21] LABS: ALANINE AMINOTRANSFERASE 16 U/L (12-78); ALBUMIN 3.6 g/dL (3.4-5.0); ALKALINE PHOSPHATASE 70 U/L (46-116); ASPARTATE AMINOTRANSFERASE 15 U/L (15-37); BILIRUBIN,TOTAL 0.3 mg/dL (0.1-1.0); HCG,QUANTITATIVE 1 mIU/mL (0-6); THYROID STIMULATING HORMONE 0.44 uIU/mL (0.36-3.74); TOTAL PROTEIN, SERUM 7.4 g/dL (6.4-8.2)
[2023-04-06 16:38] LABS: LITHIUM < 0.20 mmol/L (0.60-1.20)
[2023-04-06 16:45] LABS: APPEARANCE,URINE CLEAR (CLEAR); BILIRUBIN,URINE NEGATIVE (NEGATIVE); GLUCOSE, URINE (UA) NEGATIVE (NEGATIVE); KETONES,URINE NEGATIVE (NEGATIVE); LEUKOCYTE ESTERASE ,URINE NEGATIVE (NEGATIVE); NITRATE,URINE NEGATIVE (NEGATIVE); OCCULT BLOOD,URINE NEGATIVE (NEGATIVE); PROTEIN,URINE NEGATIVE (NEGATIVE); SPECIFIC GRAVITIY, URINE 1.003 (1.003-1.030); UROBILINOGEN,URINE <=1.0 mg/dL (<=1.0)
[2023-04-06 16:51] LABS: AMPHET/METH SCREEN,URINE NEGATIVE (NEGATIVE); BARBITURATE SCREEN, URINE NEGATIVE (NEGATIVE); BENZODIAZEPINES SCREEN,URINE NEGATIVE (NEGATIVE); CANNABINOID SCREEN,URINE NEGATIVE (NEGATIVE); COCAINE SCREEN,URINE NEGATIVE (NEGATIVE); METHADONE SCREEN, URINE NEGATIVE (NEGATIVE); OPIATE SCREEN,URINE NEGATIVE (NEGATIVE); PHENCYCLIDINE SCREEN,URINE NEGATIVE (NEGATIVE)
[2023-04-06 17:52] VITALS: BP 112/71
== END 2023-04-06 17:59 | disposition home or self-care (01) ==
LOC: EMS 14:20
DX: F41.9 Anxiety disorder, unspecified (principal); F31.9 Bipolar disorder, unspecified; F20.9 Schizophrenia, unspecified
CPT/HCPCS: 99284; 80053; 80178; 84443; 84702; 85025; 36415; 96372; 81003; 80307 ×2; G0480; J1200; J1630; J2060